=== PATIENT | female | born 1975 | race Two or more races ===

== ENCOUNTER 2021-12-28 23:01 | Emergency (ER) | payer OTHER ==
[~2021-12-28] VITALS: Ht 170.2 cm; Wt 82.7 kg
[2021-12-29] MEDS ORDERED: DiphenhydrAMINE HCL 50 MG/ML VIAL IVP ONE (00:45)
[2021-12-29] MEDS ORDERED: ACETAMINOPHEN 500 MG TABLET PO ONE (00:45)
[2021-12-29] MEDS ORDERED: KETOROLAC TROMETHAMINE 30 MG/ML VIAL IVP ONE (00:45)
[2021-12-29] MEDS ORDERED: SODIUM CHLORIDE 0.9% 1,000 ML IV ONE (00:45)
[2021-12-29] MEDS ORDERED: METOCLOPRAMIDE HCL 5 MG/ML 2 ML VIAL IVP ONE (00:45)
[2021-12-29 03:25] VITALS: BP 118/71
== END 2021-12-29 03:46 | disposition home or self-care (01) ==
LOC: EMS 23:05
DX: R51.9 Headache, unspecified (principal); F17.210 Nicotine dependence, cigarettes, uncomplicated; Z88.0 Allergy status to penicillin
CPT/HCPCS: 96361; 96374; 96375; 99284; J1200; J1885; J2765; J7030